=== PATIENT | female | born 1995 | race Caucasian/White ===

== ENCOUNTER → 2019-05-27 | Outpatient (CLI) | payer OTHER ==
[2019-05-27 14:02] LABS: HGB 12.7 gm/dL (11.4-16.0); MCH 29.2 pg (25.0-35.0); MCHC 32.7 g/dL (31.0-37.0); MCV 89.6 fL (80.0-100.0); Mean Platelet Volume 6.5; Platelet Count 363 k/uL (150-450); RBC 4.36 m/uL (3.80-5.40); RDW 15.7 % (11.5-15.5); WBC 10.7 k/uL (3.8-10.6)
[2019-05-27 14:09] LABS: African American GFR (CKD) >90 (>60 ml/min/1.73 sqM); Glucose 104 mg/dL (74-99)
--- NOTE | 2019-05-27 15:53 | US ---
EXAMINATION TYPE: Transabdominal DATE OF EXAM: 05/27/2019 2:10 PM COMPARISON: NONE CLINICAL HISTORY: Z36 CONFIRM DATES. EXAM PERFORMED: Transabdominal (TA) EXAM MEASUREMENTS: GESTATIONAL AGE / DATING Physician Established: Not yet established Dates by LMP: (13 weeks/1 days) EDC: 12/01/18 Dates by First Scan: No previous this is first scan Dates by Current Scan for: (13 weeks/4 days) EDC: 11/28/18 MATERNAL ANATOMY Uterus: 11.5 x 8.8 x 10.0cm Right Ovary: 3.3 x 2.6 x 2.4cm Left Ovary: not seen due to increased uterine size, overlying bowel gas Post CDS / Adnexa: wnl Presence of free fluid: no Presence of corpus luteal cyst: 2.4 x 2.1 x 2.1 Presence of subchorionic bleed: no GESTATION / SURVEY CRL: 7.5cm (13 weeks/4 days) Yolk Sac (normal less than 6mm): not seen Heart Rate: 160 bpm Rhythm: Normal IUP: Viable IUP Date of LMP: 02/24/19 Beta HcG (if available): IMPRESSION: Single intrauterine gestation estimated at 13 weeks 4 days gestation based on crown-rump length. Card iac activity measures 160 bpm.
== END | disposition home or self-care (01) ==
LOC: RADUSWWP 13:31
PROVIDERS: ATTEND Obstetrics & Gynecology
DX: Z34.91 Encounter for supervision of normal pregnancy, unspecified, first trimester (principal); Z3A.13 13 weeks gestation of pregnancy
CPT/HCPCS: 76801; 82565; 82947; 85027; 86762; 86780; 86850; 86900; 86901; 87340

== ENCOUNTER 2019-08-13 12:12 | Emergency (ER) | payer OTHER ==
--- NOTE | 2019-08-13 13:40 | XR ---
EXAMINATION TYPE: XR chest 2V DATE OF EXAM: 08/13/2019 COMPARISON: NONE HISTORY: Chest pain and shortness of breath TECHNIQUE: Frontal and lateral views of the chest are obtained. FINDINGS: There is no focal air space opacity, pleural effusion, or pneumothorax seen. The cardiac silhouette size is within normal limits. The osseous structures are intact. IMPRESSION: No acute cardiopulmonary process.
[2019-08-13 13:45] LABS: Basophils # (A) 0.1 k/uL (0-0.2); Basophils % (A) 0 %; Eosinophils # (A) 0.2 k/uL (0-0.7); Eosinophils % (A) 2 %; HCT 33.6 % (34.0-46.0); HGB 11.7 gm/dL (11.4-16.0); Lymphocytes # (A) 1.7 k/uL (1.0-4.8); Lymphocytes % (A) 14 %; MCH 32.1 pg (25.0-35.0); MCHC 34.9 g/dL (31.0-37.0); MCV 91.8 fL (80.0-100.0); Mean Platelet Volume 5.9; Monocytes # (A) 0.5 k/uL (0-1.0); Monocytes % (A) 4 %; Neutrophils # (A) 9.2 k/uL (1.3-7.7); Neutrophils % (A) 79 %; Platelet Count 306 k/uL (150-450); RBC 3.66 m/uL (3.80-5.40); WBC 11.7 k/uL (3.8-10.6)
[2019-08-13 13:59] LABS: Appearance,Urine Clear (Clear); Bilirubin,Urine Negative (Negative); Blood,Urine Negative (Negative); Color,Urine Yellow; Glucose,Urine (UA) 1+ (Negative); Ketones,Urine Negative (Negative); Leukocyte Esterase,Urine Negative (Negative); Nitrite,Urine Negative (Negative); PH, Urine 5.5 (5.0-8.0); Protein,Urine Negative (Negative); Specific Gravity,Urine 1.017 (1.001-1.035); Urobilinogen,Urine <2.0 mg/dL (<2.0)
[2019-08-13 14:03] LABS: INR 0.9 (<1.2); Prothrombin Time 9.4 sec (9.0-12.0)
[2019-08-13 14:09] LABS: ALT 33 U/L (9-52); AST 28 U/L (14-36); African American GFR (CKD) >90 (>60 ml/min/1.73 sqM); Albumin 3.9 g/dL (3.5-5.0); Alkaline Phosphatase 54 U/L (38-126); Anion Gap 8 mmol/L; Blood Urea Nitrogen 14 mg/dL (7-17); Calcium 9.7 mg/dL (8.4-10.2); Carbon Dioxide 24 mmol/L (22-30); Chloride 105 mmol/L (98-107); Glucose 108 mg/dL (74-99); Magnesium 1.6 mg/dL (1.6-2.3); Sodium 137 mmol/L (137-145); Total Bilirubin 0.2 mg/dL (0.2-1.3); Total Protein 7.2 g/dL (6.3-8.2)
[2019-08-13 14:10] LABS: Partial Thromboplastin Time 22.5 sec (22.0-30.0)
[2019-08-13 14:12] LABS: D-Dimer 0.94 mg/L FEU (<0.60)
--- NOTE | 2019-08-13 14:25 | US ---
EXAMINATION TYPE: US venous doppler duplex LE DATE OF EXAM: 08/13/2019 1:10 PM COMPARISON: NONE CLINICAL HISTORY: chest pain. Chest pain, SOB, bilateral leg swelling, patient is 24 weeks SIDE PERFORMED: Bilateral TECHNIQUE: The lower extremity deep venous system is examined utilizing real time linear array sonog laney with graded compression, doppler sonography and color-flow sonography. VESSELS IMAGED: External Iliac Vein (EIV) Common Femoral Vein Deep Femoral Vein Greater Saphenous Vein * Femoral Vein Popliteal Vein Small Saphenous Vein * Proximal Calf Veins (* superficial vessels) Grayscale, color doppler, spectral doppler imaging performed of the deep veins of the lower extremiti es. There is normal flow, compressibility, vascular waveforms. Right Leg: Appears negative for DVT Left Leg: Appears negative for DVT IMPRESSION: No sonographic evidence of deep venous thrombosis within either the bilateral lower extre mities.
[2019-08-13 14:28] VITALS: RESP 18
--- NOTE | 2019-08-13 15:16 | ED ---
Chest Pain HPI - General Chief Complaint: Chest Pain Stated Complaint: Chest heaviness/sob 24 wks Time Seen by Provider: 08/13/19 12:20 Source: patient Mode of arrival: ambulatory Limitations: no limitations - History of Present Illness Initial Comments: The patient is a 24-year-old female who currently lives 24 weeks . She has established care with Dr. Galvez. Today she had left-sided chest pain which started approximately 1 prior to arrival. States that she was at work when it came on. States that she was not dizzy. 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 She had associated mild shortness of breath. There is no provocative or palliative factors. No history of similar in the past. She denies any issues with this . No hyperglycemia or hypertension. She denies any abnormal vaginal bleeding or discharge. No abdominal cramping. Denies any headaches right upper quadrant pain. Does admit to bilateral lower extremity edema which has been present for the past week. No vision changes. No nausea or vomiting. No history of DVT or PE. No calf pain or swelling. No family history of blood clotting disorders. No family history of cardiac disease. There are no other alleviating, precipitating or modifying factors - Related Data Home Medications Medication Instructions Recorded Confirmed Pnv No.95/Ferrous Fum/Folic AC 1 each PO DAILY 08/13/19 08/13/19 [ Multivitamin Tablet] Allergies Allergy/AdvReac Type Severity Reaction Status Date / Time amoxicillin Allergy Rash/Hives Verified 08/13/19 17:26 cefaclor [From Ceclor] Allergy Rash/Hives Verified 08/13/19 17:26 erythromycin base Allergy Nausea & Verified 08/13/19 17:26 Vomiting Penicillins Allergy Rash/Hives Verified 08/13/19 17:26 Review of Systems ROS Statement: Those systems with pertinent positive or pertinent negative responses have been documented in the HPI. ROS Other: All systems not noted in ROS Statement are negative. EKG Findings - EKG Comments: EKG Findings:: EKG demonstrates a normal sinus rhythm with a ventricular rate of 95. MA interval 144. QRS 86. QTC 459. There is an inverted T-wave in lead 3. No acute ST segment elevations or depressions concerning for ischemic changes Past Medical History Past Medical History: No Reported History History of Any Multi-Drug Resistant Organisms: None Reported Past Surgical History: No Surgical Hx Reported Past Psychological History: No Psychological Hx Reported Smoking Status: Never smoker Past Alcohol Use History: None Reported Past Drug Use History: None Reported General Exam Limitations: no limitations General appearance: alert, in no apparent distress Head exam: Present: atraumatic, normocephalic, normal inspection Eye exam: Present: normal appearance, PERRL, EOMI. Absent: scleral icterus, conjunctival injection, periorbital swelling ENT exam: Present: normal exam, mucous membranes moist Neck exam: Present: normal inspection. Absent: tenderness, meningismus, lym phadenopathy Respiratory exam: Present: normal lung sounds bilaterally. Absent: respiratory distress, wheezes, rales, rhonchi, stridor Cardiovascular Exam: Present: regular rate, normal rhythm, normal heart sounds. Absent: systolic murmur, diastolic murmur, rubs, gallop, clicks GI/Abdominal exam: Present: soft, normal bowel sounds, other (gravid, uterus palpated above the umbilicus). Absent: distended, tenderness, guarding, rebound, rigid Extremities exam: Present: normal inspection, full ROM, normal capillary refill, pedal edema. Absent: tenderness, joint swelling, calf tenderness Back exam: Present: normal inspection Neurological exam: Present: alert, oriented X3, CN II-XII intact Psychiatric exam: Present: normal affect, normal mood Skin exam: Present: warm, dry, intact, normal color. Absent: rash Course Vital Signs 08/13/19 08/13/19 08/13/19 12:18 14:27 16:54 Temperature 97.6 F 98.1 F Pulse Rate 90 85 93 Respiratory 20 18 18 Rate Blood Pressure 142/93 127/78 136/88 O2 Sat by Pulse 100 99 98 Oximetry Chest Pain MDM - MDM Upon arrival the patient was placed into room 25. A thorough history and physical exam was performed. I did recommend an EKG, laboratory studies and a chest x-ray. EKG demonstrates no acute findings. CBC shows a white blood count of 11.7. D-dimer is elevated at 0.94 however within normal limits for a second trimester . A CMP is unremarkable. First troponin is negative. Urinalysis shows no protein. The patient's blood pressures were evaluated multiple times about her stay. They did remain close to 130 systolic. I did perform a chest x-ray on the patient which demonstrates no acute cardiopulmonary process. I also did a venous Doppler of the patient's bilateral lower extremities which demonstrates no acute DVT. I did discuss these results with the patient. I did offer a CT of the patient's chest because of her elevated d- dimer however the patient refused. I did do a bedside ultrasound which demonstrated positive movements and heart tones of approximately 138. I also performed a cardiac ultrasound. At this time the patient will be discharged home. She needs to follow up with cardiology and have a formal echo of her heart performed. She is to follow up with her primary care physician in 2-4 days. She needs to return to the emergency room for any new or worsening symptoms. She will be discharged from here and is to go upstairs to OB for an NST. The patient was discharged from the ER and taken up to OB. Disposition Clinical Impression: Chest pain, Second trimester , Lower extremity edema Disposition: HOME SELF-CARE Condition: Stable Instructions (If sedation given, give patient instructions): Chest Pain (ED) Additional Instructions: Please follow up with your primary care doctor in 2-4 days. I recommend that you have a echo of your heart done. Return to the emergency room for any new or worsening symptoms Is patient prescribed a controlled substance at d/c from ED?: No Referrals: Lokesh Schneider MD [Primary Care Provider] - 1-2 days Toby Galvez MD [STAFF PHYSICIAN] - 1-2 days Time of Disposition: 16:28
[2019-08-13 16:55] VITALS: BP 136/88; PULSE 93; TEMP 98.1
== END 2019-08-13 16:55 | disposition home or self-care (01) ==
LOC: EC 12:12
DX: O12.02 Gestational edema, second trimester (principal); O99.412 Diseases of the circulatory system complicating pregnancy, second trimester; R07.89 Other chest pain; Z3A.24 24 weeks gestation of pregnancy; Z88.1 Allergy status to other antibiotic agents; Z88.0 Allergy status to penicillin
CPT/HCPCS: 36415; 71046; 80053; 81003; 83735; 84484; 85025; 85379; 85610; 85730; 93005; 93970; 99285

== ENCOUNTER 2019-08-13 17:03 | Outpatient (CLI) | payer OTHER ==
[2019-08-13 19:12] VITALS: BP 135/82; PULSE 93; RESP 16; TEMP 98.1
--- NOTE | 2019-08-15 07:55 | P.MSEPDOC ---
Presenting Problems - Arrival Data Date of Arrival on Unit: 08/13/19 Time of Arrival on Unit: 17:03 Mode of Transport: Ambulatory - Complaint OB-Reason for Admission/Chief Complaint: PIH Comment: pt c/o increase blood pressure with activity and headache, heaviness in chest Medical History - Information : 1 Para: 0 Term: 0 : 0 Abortions: Spontaneous or Elective: 0 Number of Living Children: 0 - Gestational Age Gestational Age by JANNIE (wks/days): 24 Weeks and 2 Days Review of Systems - Review of Systems Constitutional: No problems Breast: No problems ENT: No problems Cardiovascular: No problems, Chest pain Respiratory: No problems Gastrointestinal: No problems Genitourinary: No problems Musculoskeletal: No problems Neurological: No problems Skin: No problems Vital Signs - Temperature Temperature: 98.1 F Temperature Source: Oral - Pulse Right Brachial Pulse Rate: 93 Pulse Assessment Method: Automatic Cuff - Respirations Respiratory Rate: 16 Oxygen Delivery Method: Room Air O2 Sat by Pulse Oximetry: 97 - Blood Pressure Right Arm Blood Pressure: 135/82 Blood Pressure Mean: 99 Blood Pressure Source: Automatic Cuff Medical Screen Scoring (Pre) - Cervical Exam Dilation: Exam Deferred - Uterine Contractions Frequency: N/A Duration: N/A - Maternal Vital Signs Maternal Temperature: N/A Maternal Blood Pressure: N/A Signs of Preeclampsia: Headache = 1 Maternal Respirations: N/A - Maternal Trauma Maternal Trauma: N/A - Assessment - Baby A Baseline FHR: 150 Heart Rate - NICHD Category: Category I (Normal) = 0 Position: N/A Station: N/A - Total Score - Baby A Total Score - Baby A: 1 - Total Score - Baby B Total Score - Baby B: 1 - Total Score - Baby C Total Score - Baby C: 1 - Level of Risk - Baby A Level of Risk - Baby A: Low (0-5) - Level of Risk - Baby B Level of Risk - Baby B: Low (0-5) - Level of Risk - Baby C Level of Risk - Baby C: Low (0-5) Physician Notification (Pre) - Physician Notified Physician Notified Date: 08/13/19 Physician Notified Time: 17:40 New Order Received: No - Notification Comment Comment: after reviewing labs pt may be discharged home Disposition - Disposition OB Disposition: Discharge to home Discharge Date: 08/13/19 Discharge Time: 17:59 I agree with the RN Medical Screening Exam: Yes Risk & Benefit of care provided described in d/c instruction: Yes Diagnosis: RELATED CONDITIONS, UNSPECIFIED, SECOND TRIMESTER
== END 2019-08-13 17:59 | disposition home or self-care (01) ==
LOC: FBPOP 17:03
PROVIDERS: ATTEND Obstetrics & Gynecology
DX: O26.92 Pregnancy related conditions, unspecified, second trimester (principal); Z3A.24 24 weeks gestation of pregnancy
CPT/HCPCS: 99215

== ENCOUNTER 2019-09-15 10:42 | Outpatient (CLI) | payer OTHER ==
[2019-09-15 13:16] VITALS: BP 135/70; PULSE 85; RESP 18; TEMP 98.2
--- NOTE | 2019-09-16 06:16 | P.MSEPDOC ---
Presenting Problems - Arrival Data Date of Arrival on Unit: 09/15/19 Time of Arrival on Unit: 10:40 Mode of Transport: Ambulatory - Complaint OB-Reason for Admission/Chief Complaint: Decreased Movement Medical History - Information : 1 Para: 0 Term: 0 : 0 Abortions: Spontaneous or Elective: 0 Number of Living Children: 0 - Gestational Age Gestational Age by JANNIE (wks/days): 29 Weeks and 0 Days Review of Systems - Review of Systems Constitutional: No problems Breast: No problems ENT: No problems Cardiovascular: No problems Respiratory: No problems Gastrointestinal: No problems Genitourinary: No problems Musculoskeletal: No problems Neurological: No problems Skin: No problems Vital Signs - Temperature Temperature: 98.2 F Temperature Source: Oral - Pulse Right Brachial Pulse Rate: 85 Pulse Assessment Method: Automatic Cuff - Respirations Respiratory Rate: 18 Oxygen Delivery Method: Room Air - Blood Pressure Right Arm Blood Pressure: 135/70 Blood Pressure Mean: 91 Blood Pressure Source: Automatic Cuff Medical Screen Scoring (Pre) - Cervical Exam Dilation: Exam Deferred Effacement: Exam Deferred - Uterine Contractions Frequency: N/A Duration: N/A Intensity: N/A - Maternal Vital Signs Maternal Temperature: N/A Maternal Blood Pressure: N/A Signs of Preeclampsia: N/A Maternal Respirations: N/A - Maternal Trauma Maternal Trauma: N/A - Assessment - Baby A Baseline FHR: 135 Heart Rate - NICHD Category: Category I (Normal) = 0 NST: Reactive Position: N/A Station: N/A - Total Score - Baby A Total Score - Baby A: 0 - Total Score - Baby B Total Score - Baby B: 0 - Total Score - Baby C Total Score - Baby C: 0 - Level of Risk - Baby A Level of Risk - Baby A: Low (0-5) - Level of Risk - Baby B Level of Risk - Baby B: Low (0-5) - Level of Risk - Baby C Level of Risk - Baby C: Low (0-5) Physician Notification (Pre) - Physician Notified Physician Notified Date: 09/15/19 Physician Notified Time: 11:20 Spoke With: perry Shay Order Received: Yes - Notification Comment Comment: discharge home. to keep next sched appt Disposition - Disposition OB Disposition: Discharge to home Discharge Date: 09/15/19 Discharge Time: 11:35 I agree with the RN Medical Screening Exam: Yes Risk & Benefit of care provided described in d/c instruction: Yes Diagnosis: DECREASED MOVEMENTS, SECOND TRIMESTER, FETUS 1
== END 2019-09-15 11:35 | disposition home or self-care (01) ==
LOC: FBPOP 10:42
PROVIDERS: ATTEND Obstetrics & Gynecology
DX: O36.8121 Decreased fetal movements, second trimester, fetus 1 (principal); Z3A.29 29 weeks gestation of pregnancy
CPT/HCPCS: 59025; G0463; 99213

== ENCOUNTER 2019-10-10 11:50 | Emergency (ER) | payer OTHER ==
[2019-10-10 12:24] VITALS: RESP 16; TEMP 98.4
--- NOTE | 2019-10-10 12:32 | ED ---
Lower Extremity Injury HPI - General Chief Complaint: Extremity Injury, Lower Stated Complaint: Foot injury Time Seen by Provider: 10/10/19 12:06 Source: patient, RN notes reviewed, old records reviewed Mode of arrival: ambulatory Limitations: no limitations - History of Present Illness Initial Comments: Patient is a pleasant 24-year-old female proximally 33 weeks . She presents today with complaints of left foot pain. Patient reports that on Friday late evening a couch was dropped on her foot while they were trying to move it. Patient reports that she's had some tenderness and swelling over the third and fourth distal metatarsals. Patient states pain with range motion of her toes. Denies any previous broken bones prior to this. - Related Data Home Medications Medication Instructions Recorded Confirmed Pnv No.95/Ferrous Fum/Folic AC 1 each PO DAILY 08/13/19 09/15/19 [ Multivitamin Tablet] Ferrous Sulfate [Feosol] 325 mg PO DAILY 09/15/19 09/15/19 Allergies Allergy/AdvReac Type Severity Reaction Status Date / Time amoxicillin Allergy Rash/Hives Verified 08/13/19 17:26 cefaclor [From Ceclor] Allergy Rash/Hives Verified 08/13/19 17:26 erythromycin base Allergy Nausea & Verified 08/13/19 17:26 Vomiting Penicillins Allergy Rash/Hives Verified 08/13/19 17:26 Review of Systems ROS Statement: Those systems with pertinent positive or pertinent negative responses have been documented in the HPI. ROS Other: All systems not noted in ROS Statement are negative. Past Medical History Past Medical History: No Reported History History of Any Multi-Drug Resistant Organisms: None Reported Past Surgical History: No Surgical Hx Reported Past Psychological History: No Psychological Hx Reported Smoking Status: Never smoker Past Alcohol Use History: None Reported Past Drug Use History: None Reported General Exam - General Exam Comments Initial Comments: 24-year-old male. Alert and oriented. No distress. Limitations: no limitations General appearance: alert, in no apparent distress Head exam: Present: atraumatic, normocephalic, normal inspection Eye exam: Present: normal appearance, PERRL, EOMI. Absent: scleral icterus, conjunctival injection, periorbital swelling ENT exam: Present: normal exam, mucous membranes moist Neck exam: Present: normal inspection. Absent: tenderness, meningismus, lymphadenopathy Respiratory exam: Present: normal lung sounds bilaterally. Absent: respiratory distress, wheezes, rales, rhonchi, stridor Cardiovascular Exam: Present: regular rate, normal rhythm, normal heart sounds. Absent: systolic murmur, diastolic murmur, rubs, gallop, clicks Extremities exam: Present: normal inspection, full ROM, normal capillary refill, other (She has contusion over the dorsum of her left foot.). Absent: tenderness, pedal edema, joint swelling, calf tenderness Course Vital Signs 10/10/19 12:20 Temperature 98.4 F Pulse Rate 87 Respiratory 16 Rate Blood Pressure 139/84 O2 Sat by Pulse 99 Oximetry Medical Decision Making - Medical Decision Making 24-year-old female presents today for evaluation for left foot pain. Patient reportedly dropped a couch on the dorsum of her foot 2 days ago. Eric worsening soft tissue swelling. This time x-rays are negative for fracture. Patient is given Hardeep wrap. Discussed to use crutches for pain. Discussed close follow-up with primary care doctor. All questions were answered. - Radiology Data Radiology results: report reviewed Dorsal soft tissue swelling along the forefoot and midfoot region. No osseous abnormality seen. Disposition Clinical Impression: Foot contusion Disposition: HOME SELF-CARE Condition: Good Instructions (If sedation given, give patient instructions): Foot Contusion (ED) Additional Instructions: Advised to rest ice and elevate foot. Taking Tylenol for pain. Please follow up with family doctor if symptoms have not improved over the next two days. Please return to the emergency room if your symptoms increase or worsen or for any other concerns. Is patient prescribed a controlled substance at d/c from ED?: No Referrals: Lokesh Schneider MD [Primary Care Provider] - 1-2 days Time of Disposition: 13:07
--- NOTE | 2019-10-10 12:34 | XR ---
EXAMINATION TYPE: XR foot complete LT DATE OF EXAM: 10/10/2019 COMPARISON: NONE HISTORY: 24-year-old female crush injury, bruising superiorly, pain. TECHNIQUE: 3 views FINDINGS: Dorsal forefoot and midfoot soft tissue swelling. No acute fracture, subluxation, dislocation seen. J oint spaces throughout are maintained. IMPRESSION: Dorsal soft tissue swelling along the forefoot/midfoot region. No underlying acute osseous abnormalit y seen.
[2019-10-10 13:27] VITALS: BP 139/94; PULSE 95
== END 2019-10-10 13:25 | disposition home or self-care (01) ==
LOC: EC 11:50
DX: O9A.213 Injury, poisoning and certain other consequences of external causes complicating pregnancy, third trimester (principal); S90.32XA Contusion of left foot, initial encounter; Z88.0 Allergy status to penicillin; Z88.1 Allergy status to other antibiotic agents; W20.8XXA Other cause of strike by thrown, projected or falling object, initial encounter; Y93.89 Activity, other specified; Z3A.33 33 weeks gestation of pregnancy
CPT/HCPCS: 99284

== ENCOUNTER 2019-11-24 12:03 | Outpatient (CLI) | payer OTHER ==
[2019-11-24 12:42] LABS: Basophils % (A) 0 %; Eosinophils # (A) 0.3 k/uL (0-0.7); Eosinophils % (A) 3 %; HCT 36.6 % (34.0-46.0); HGB 12.3 gm/dL (11.4-16.0); Lymphocytes # (A) 1.7 k/uL (1.0-4.8); Lymphocytes % (A) 16 %; MCH 30.1 pg (25.0-35.0); MCHC 33.5 g/dL (31.0-37.0); MCV 89.7 fL (80.0-100.0); Mean Platelet Volume 7.9; Monocytes # (A) 0.4 k/uL (0-1.0); Monocytes % (A) 4 %; Neutrophils # (A) 7.6 k/uL (1.3-7.7); Neutrophils % (A) 74 %; Platelet Count 310 k/uL (150-450); RBC 4.08 m/uL (3.80-5.40); RDW 13.2 % (11.5-15.5); WBC 10.1 k/uL (3.8-10.6)
[2019-11-24 12:44] LABS: African American GFR (CKD) >90 (>60 ml/min/1.73 sqM); Blood Urea Nitrogen 12 mg/dL (7-17); LDH 383 U/L (313-618); Non-African American GFR(CKD) >90 (>60 ml/min/1.73 sqM); Uric Acid 5.1 mg/dL (3.7-7.4)
[2019-11-24 12:48] LABS: Protein/Creatinine Ratio,Urine 0.102
[2019-11-24 13:34] LABS: Bacteria,Urine Rare /hpf; Hyaline Casts,Urine 1 /lpf (0-2); Mucus,Urine Occasional /hpf; RBC,Urine 1 /hpf (0-5); Squamous Epithelial Cell,Urine 9 /hpf (0-4); WBC,Urine 3 /hpf (0-5)
[2019-11-24 13:36] LABS: Appearance,Urine Cloudy (Clear); Color,Urine Yellow; Specific Gravity,Urine 1.015 (1.001-1.035)
[2019-11-24 13:37] LABS: Bilirubin,Urine Negative (Negative); Blood,Urine Negative (Negative); Glucose,Urine (UA) 1+ (Negative); Ketones,Urine Negative (Negative); Protein,Urine Negative (Negative)
[2019-11-24 13:38] LABS: Leukocyte Esterase,Urine Negative (Negative); Nitrite,Urine Negative (Negative); Urobilinogen,Urine <2.0 mg/dL (<2.0)
== END 2019-11-24 13:38 | disposition home or self-care (01) ==
LOC: FBPOP 12:03
PROVIDERS: ATTEND Obstetrics & Gynecology
DX: O14.93 Unspecified pre-eclampsia, third trimester (principal); Z3A.39 39 weeks gestation of pregnancy
CPT/HCPCS: 59025; 81001; 82565; 82570; 83615; 84156; 84520; 84550; 85025

== ENCOUNTER 2019-11-28 17:27 | Outpatient (CLI) | payer OTHER ==
[2019-11-28 17:46] VITALS: PULSE 96; RESP 16; TEMP 98.1
[2019-11-28 18:22] LABS: Basophils % (A) 0 %; Eosinophils # (A) 0.3 k/uL (0-0.7); Eosinophils % (A) 3 %; HCT 31.7 % (34.0-46.0); HGB 10.8 gm/dL (11.4-16.0); Lymphocytes # (A) 1.8 k/uL (1.0-4.8); Lymphocytes % (A) 16 %; MCH 30.8 pg (25.0-35.0); MCV 90.4 fL (80.0-100.0); Mean Platelet Volume 7.4; Monocytes # (A) 0.5 k/uL (0-1.0); Monocytes % (A) 4 %; Neutrophils # (A) 8.7 k/uL (1.3-7.7); Neutrophils % (A) 76 %; Platelet Count 332 k/uL (150-450); RBC 3.51 m/uL (3.80-5.40); RDW 13.3 % (11.5-15.5); WBC 11.5 k/uL (3.8-10.6)
[2019-11-28] MEDS ORDERED: LABETALOL 100 MG TAB PO STA (18:42)
[2019-11-28 18:47] VITALS: BP 127/80
--- NOTE | 2019-11-29 07:12 | P.PN ---
Progress Note - Text Progress Note Date: 11/29/19 Patient called me on 11/28/2019 with complaints of a headache and elevated blood pressure. She is S/P on 11/26, induced for gestational hypertension. She did not require any anti-hypertensives during her admission and preeclampsia evaluation previously was normal. I advised patient to come to triage for evaluation. On admit she had one elevated blood pressure and all others were normal. I did repeat labs and they did not show evidence of preeclampsia. I placed her on oral Labetalol 100 BID and discharged home to followup with me as scheduled on Friday for a repeat blood pressure check.
== END 2019-11-28 19:00 | disposition home or self-care (01) ==
LOC: FBPOP 17:27
PROVIDERS: ATTEND Obstetrics & Gynecology
DX: O13.3 Gestational [pregnancy-induced] hypertension without significant proteinuria, third trimester (principal)
CPT/HCPCS: 84450; 84460; 84550; 85025; G0463; 99215

== ENCOUNTER 2020-06-19 15:10 | Emergency (ER) | payer OTHER ==
--- NOTE | 2020-06-19 16:19 | XR ---
EXAMINATION TYPE: XR foot complete LT DATE OF EXAM: 06/19/2020 CLINICAL HISTORY: pain TECHNIQUE: Frontal, lateral and oblique images of the left foot are obtained. COMPARISON: None. FINDINGS: There is no acute fracture/dislocation evident. The joint spaces appear within normal prieto its. The overlying soft tissue appears unremarkable. IMPRESSION: There is no acute fracture or dislocation. ICD 10 NO FRACTURE, INITIAL EVALUATION
--- NOTE | 2020-06-19 16:39 | ED ---
Lower Extremity Injury HPI - General Chief Complaint: Extremity Injury, Lower Stated Complaint: Fall, lt foot injury Time Seen by Provider: 06/19/20 15:34 Source: patient, RN notes reviewed, old records reviewed Mode of arrival: ambulatory Limitations: no limitations - History of Present Illness Initial Comments: Pt is a 25 year old female with CC of left foot injury. She reports she fell down 6 stairs on Friday and injured her left fot. She states that she has no other injury. Pt reports pain with ambulation and swelling. - Related Data Previous Rx's Medication Instructions Recorded Ibuprofen [Motrin] 600 mg PO Q8HR PRN #20 tab 06/19/20 Allergies Allergy/AdvReac Type Severity Reaction Status Date / Time amoxicillin Allergy Rash/Hives Verified 06/19/20 15:30 cefaclor [From Ceclor] Allergy Rash/Hives Verified 06/19/20 15:30 erythromycin base Allergy Nausea & Verified 06/19/20 15:30 Vomiting Penicillins Allergy Rash/Hives Verified 06/19/20 15:30 Review of Systems ROS Statement: Those systems with pertinent positive or pertinent negative responses have been documented in the HPI. ROS Other: All systems not noted in ROS Statement are negative. Past Medical History Past Medical History: No Reported History History of Any Multi-Drug Resistant Organisms: None Reported Past Surgical History: No Surgical Hx Reported Past Anesthesia/Blood Transfusion Reactions: No Reported Reaction Past Psychological History: No Psychological Hx Reported Past Alcohol Use History: None Reported Past Drug Use History: None Reported - Past Family History Mother Family Medical History: No Reported History General Exam - General Exam Comments Initial Comments: Pt is a well appearing 25 year old female, no distress. Limitations: no limitations General appearance: alert, in no apparent distress Head exam: Present: atraumatic, normocephalic, normal inspection Eye exam: Present: normal appearance, PERRL, EOMI. Absent: scleral icterus, conjunctival injection, periorbital swelling ENT exam: Present: normal exam, mucous membranes moist Neck exam: Present: normal inspection. Absent: tenderness, meningismus, lymphadenopathy Respiratory exam: Present: normal lung sounds bilaterally. Absent: respiratory distress, wheezes, rales, rhonchi, stridor Cardiovascular Exam: Present: regular rate, normal rhythm, normal heart sounds. Absent: systolic murmur, diastolic murmur, rubs, gallop, clicks GI/Abdominal exam: Present: soft, normal bowel sounds. Absent: distended, tenderness, guarding, rebound, rigid Extremities exam: Present: normal inspection, full ROM, normal capillary refill, other (swelling and tenderness over first and second metatarsal on left foot. Normal cap refill. ). Absent: tenderness, pedal edema, joint swelling, calf tenderness Neurological exam: Present: alert, oriented X3, CN II-XII intact Psychiatric exam: Present: normal affect, normal mood Skin exam: Present: warm, dry, intact, normal color. Absent: rash Course Vital Signs 06/19/20 06/19/20 15:29 16:45 Temperature 98.3 F 98.0 F Pulse Rate 77 75 Respiratory 18 16 Rate Blood Pressure 125/86 134/100 O2 Sat by Pulse 99 100 Oximetry Procedures - Orthopedic Splinting/Casting Injury #1 Side: left Lower Extremity Immobilizer: posterior splint, synthetic pre-padded splint Other Orthopedic Equipment: crutches Medical Decision Making - Medical Decision Making 25 year old female with left foot pain after falling down stairs a few days ago. she has swelling and tenderness to left first metatarsal. Xry is negative for fracture. With pain with ambulation and non weight bearing, pt placed in splint. Discussed return parameters. - Radiology Data Radiology results: report reviewed Foot xray is netagive for acute process. Disposition Clinical Impression: Foot contusion, Foot sprain Disposition: HOME SELF-CARE Condition: Good Instructions (If sedation given, give patient instructions): Foot Sprain (ED) Additional Instructions: Patient advised to rest, ice, elevate the foot. Remain in the splint. See orthopedic for recheck. Prescriptions: Ibuprofen [Motrin] 600 mg PO Q8HR PRN #20 tab PRN Reason: Pain Is patient prescribed a controlled substance at d/c from ED?: No Referrals: Lokesh Tinajero MD [Primary Care Provider] - 1-2 days Shai Qureshi DO [Doctor of Osteopathic Medicine] - 1-2 days Time of Disposition: 16:38
[2020-06-19 17:02] VITALS: BP 134/100; PULSE 75; RESP 16; TEMP 98
== END 2020-06-19 16:45 | disposition home or self-care (01) ==
LOC: EC 15:10
DX: S93.602A Unspecified sprain of left foot, initial encounter (principal); Z88.0 Allergy status to penicillin; Z88.1 Allergy status to other antibiotic agents; W10.9XXA Fall (on) (from) unspecified stairs and steps, initial encounter
CPT/HCPCS: 29515; 99284

== ENCOUNTER 2024-02-23 07:30 | Outpatient (CLI) | payer OTHER ==
[2024-02-23] MEDS: ACETAMINOPHEN TAB 500 MG TAB PO STA (09:01)
[2024-02-23 09:21] LABS: ALT 16 U/L (4-34); AST 22 U/L (14-36); African American GFR (CKD) >90 (>60 ml/min/1.73 sqM); Blood Urea Nitrogen 9 mg/dL (7-17); LDH 182 U/L (120-246); Non-African American GFR(CKD) >90 (>60 ml/min/1.73 sqM); Uric Acid 4.5 mg/dL (3.7-7.4)
[2024-02-23 09:24] LABS: Appearance,Urine Clear (Clear); Bilirubin,Urine Negative (Negative); Blood,Urine Negative (Negative); Color,Urine Colorless; Glucose,Urine (UA) Negative (Negative); Ketones,Urine Negative (Negative); Leukocyte Esterase,Urine Negative (Negative); Nitrite,Urine Negative (Negative); Protein,Urine Negative (Negative); Specific Gravity,Urine 1.005 (1.001-1.035); Urobilinogen,Urine <2.0 mg/dL (<2.0)
[2024-02-23 09:47] LABS: Basophils # (A) 0.1 k/uL (0-0.2); Basophils % (A) 1 %; Eosinophils # (A) 0.2 k/uL (0-0.7); Eosinophils % (A) 1 %; HCT 39.2 % (34.0-46.0); HGB 13.1 gm/dL (11.4-16.0); Lymphocytes # (A) 1.9 k/uL (1.0-4.8); Lymphocytes % (A) 14 %; MCH 32.1 pg (25.0-35.0); MCHC 33.4 g/dL (31.0-37.0); MCV 96.2 fL (80.0-100.0); Mean Platelet Volume 7.7; Monocytes # (A) 0.5 k/uL (0-1.0); Monocytes % (A) 4 %; Neutrophils # (A) 11.1 k/uL (1.3-7.7); Neutrophils % (A) 81 %; Platelet Count 333 k/uL (150-450); RBC 4.08 m/uL (3.80-5.40); RDW 12.8 % (11.5-15.5); WBC 13.8 k/uL (3.8-10.6)
[2024-02-23 10:31] LABS: Creatinine,Urine Random 35.4 mg/dL; Protein/Creatinine Ratio,Urine 0.593
[2024-02-23 11:20] VITALS: BP 134/82; PULSE 106; RESP 18; TEMP 98.4
--- NOTE | 2024-02-23 16:27 | P.MSEPDOC ---
Presenting Problems - Arrival Data Date of Arrival on Unit: 02/23/24 Time of Arrival on Unit: 07:30 Mode of Transport: Ambulatory - Complaint OB-Reason for Admission/Chief Complaint: Headache, Elevated Blood Pressure, Dizziness Medical History - Information : 2 Para: 1 Term: 1 : 0 Abortions: Spontaneous or Elective: 0 Number of Living Children: 1 - Gestational Age Gestational Age by JANNIE (wks/days): 24 Weeks and 1 Days - History Comment: hx of [facility] Review of Systems - Review of Systems Constitutional: No problems Breast: No problems ENT: No problems Cardiovascular: No problems Respiratory: No problems Gastrointestinal: No problems Genitourinary: No problems Musculoskeletal: No problems Neurological: Dizziness Skin: No problems Vital Signs - Temperature Temperature: 98.4 F Temperature Source: Temporal Artery Scan - Pulse Pulse Oximetery Pulse Rate: 106 Pulse Assessment Method: Pulse Oximetry - Respirations Respiratory Rate: 18 Oxygen Delivery Method: Room Air O2 Sat by Pulse Oximetry: 98 - Blood Pressure Right Arm Blood Pressure: 134/82 Blood Pressure Mean: 99 Blood Pressure Source: Automatic Cuff Medical Screen Scoring - Assessment - Baby A Baseline FHR: 140 Heart Rate - NICHD Category: Category I (Normal) Physician Notification - Physician Notified Physician Notified Date: 02/23/24 Physician Notified Time: 08:47 Physician: Becky Mccall New Order Received: Yes - Notification Comment Comment: Dr. Mccall called on cell, report given on pt's c/o elevated BP, DONALDSON, dizziness, lightheadedness, and blurred vision this morning. Pt currently has a slight DONALDSON and slight lightheadedness. BPs currently are 134/82, 127/77, 119/70, etc. Pt has not taken her nifedipine yet this morning nor has she taken tylenol. FHR 140s via doppler, RN unable to get FHR to trace via EFM. Orders to give 1,000mg PO tylenol and draw [facility] labs. If labs are WNL, pt can be d/c'd home and follow up at her next scheduled appointment on . Maternal Triage Index - Maternal Triage Index Presenting for scheduled procedure w/no complaint: No - Stat/Priority 1 Stat Priority 1: No - Urgent/Priority 2 Urgent Priority 2: No - Prompt/Priority 3 Prompt Priority 3: Yes Criteria Met for Priority 3: 24 1/7wks, c/o DONALDSON, dizziness, lightheadedness, blurred vision this morning. Hx of PIH with first Disposition - Disposition OB Disposition: Discharge to home Discharge Date: 02/23/24 Discharge Time: 10:35 I agree with the RN Medical Screening Exam: Yes Physician's MSE Comment: I have neither seen nor examined the patient Case reviewed; plan agreed upon as documented in EMR&OBIX.: Yes Diagnosis: MATERNAL CARE FOR PROBLEM, UNSP, SECOND * DO NOT USE *
== END 2024-02-23 10:35 | disposition home or self-care (01) ==
LOC: FBPOP 07:30
PROVIDERS: ATTEND Obstetrics & Gynecology
DX: O99.891 Other specified diseases and conditions complicating pregnancy (principal); R51.9 Headache, unspecified; R42 Dizziness and giddiness; O26.892 Other specified pregnancy related conditions, second trimester; R03.0 Elevated blood-pressure reading, without diagnosis of hypertension; Z3A.24 24 weeks gestation of pregnancy; Z88.0 Allergy status to penicillin; Z88.8 Allergy status to other drugs, medicaments and biological substances; Z88.1 Allergy status to other antibiotic agents
CPT/HCPCS: 82570; 84156; 82565; 83615; 84450; 84460; 84520; 84550; 85025; 81003; G0463; 99215

== ENCOUNTER 2024-04-25 13:45 | Outpatient (CLI) | payer OTHER ==
[2024-04-25 14:32] LABS: Creatinine,Urine Random 150.7 mg/dL
[2024-04-25 14:47] LABS: Appearance,Urine Cloudy (Clear); Bacteria,Urine Rare /hpf; Bilirubin,Urine Negative (Negative); Blood,Urine Negative (Negative); Color,Urine Yellow; Glucose,Urine (UA) 2+ (Negative); Ketones,Urine Negative (Negative); Leukocyte Esterase,Urine Moderate (Negative); Mucus,Urine Rare /hpf; Nitrite,Urine Negative (Negative); Protein,Urine Trace (Negative); RBC,Urine 5 /hpf (0-5); Specific Gravity,Urine 1.022 (1.001-1.035); Squamous Epithelial Cell,Urine 12 /hpf (0-4); WBC,Urine 6 /hpf (0-5)
[2024-04-25 14:57] LABS: Basophils # (A) 0.1 k/uL (0-0.2); Basophils % (A) 1 %; Eosinophils # (A) 0.3 k/uL (0-0.7); Eosinophils % (A) 3 %; HCT 32.6 % (34.0-46.0); HGB 10.9 gm/dL (11.4-16.0); Lymphocytes % (A) 18 %; MCH 31.3 pg (25.0-35.0); MCHC 33.5 g/dL (31.0-37.0); MCV 93.3 fL (80.0-100.0); Mean Platelet Volume 7.3; Monocytes # (A) 0.5 k/uL (0-1.0); Monocytes % (A) 4 %; Neutrophils % (A) 73 %; Platelet Count 371 k/uL (150-450); RBC 3.49 m/uL (3.80-5.40); WBC 10.9 k/uL (3.8-10.6)
[2024-04-25] MEDS ORDERED: ONDANSETRON 4 MG/2 ML VIAL IVP STA (15:22)
[2024-04-25 15:58] LABS: ALT 17 U/L (4-34); AST 24 U/L (14-36); African American GFR (CKD) >90 (>60 ml/min/1.73 sqM); Blood Urea Nitrogen 9 mg/dL (7-17); LDH 149 U/L (120-246); Non-African American GFR(CKD) >90 (>60 ml/min/1.73 sqM); Uric Acid 4.6 mg/dL (3.7-7.4)
[2024-04-25 16:10] VITALS: BP 134/84; PULSE 97; RESP 18
--- NOTE | 2024-04-25 22:05 | P.MSEPDOC ---
Presenting Problems - Arrival Data Date of Arrival on Unit: 04/25/24 Time of Arrival on Unit: 13:45 Mode of Transport: Ambulatory - Complaint OB-Reason for Admission/Chief Complaint: PIH Comment: pt presents to triage for elevated bp's at home with headache and dizziness Medical History - Information : 2 Para: 1 Term: 1 : 0 Abortions: Spontaneous or Elective: 0 Number of Living Children: 1 - Gestational Age Gestational Age by JANNIE (wks/days): 33 Weeks and 0 Days Review of Systems - Review of Systems Constitutional: No problems Breast: No problems ENT: No problems Cardiovascular: No problems Respiratory: No problems Gastrointestinal: No problems Genitourinary: No problems Musculoskeletal: No problems Neurological: No problems Skin: No problems Vital Signs - Pulse Left Brachial Pulse Rate: 97 Pulse Assessment Method: Automatic Cuff - Respirations Respiratory Rate: 18 Oxygen Delivery Method: Room Air O2 Sat by Pulse Oximetry: 97 - Blood Pressure Left Arm Blood Pressure: 134/84 Blood Pressure Mean: 100 Blood Pressure Source: Automatic Cuff Medical Screen Scoring - Uterine Contractions Intensity: Mild Resting: Soft to palpation - Assessment - Baby A Baseline FHR: 140 NST: Reactive Physician Notification - Physician Notified Physician Notified Date: 04/25/24 Physician Notified Time: 13:55 Physician: [id number] - Notification Comment Comment: nst reactive, labs drawn and urine sent, bp's wnl, report given to Dr. Perez, orders to discharge home, pt has appt with Dr. Mccall on Friday Maternal Triage Index - Maternal Triage Index Presenting for scheduled procedure w/no complaint: No - Stat/Priority 1 Stat Priority 1: No - Urgent/Priority 2 Urgent Priority 2: Yes Provider Notified: Dena Perez Provider Notified Time: 13:55 Criteria Met for Priority 2: pt presents to triage for elevated bp's at home with headache and dizziness Disposition - Disposition OB Disposition: Triage, Discharge to home, Written follow up instructions reviewed Discharge Date: 04/25/24 Discharge Time: 15:55 I agree with the RN Medical Screening Exam: Yes Case reviewed; plan agreed upon as documented in EMR&OBIX.: Yes Diagnosis: GESTATIONAL HTN W/O SIGNIFICANT PROTEINURIA, THIRD TRIMESTER
== END 2024-04-25 15:55 | disposition home or self-care (01) ==
LOC: FBPOP 13:45
PROVIDERS: ATTEND Obstetrics & Gynecology
DX: O13.3 Gestational [pregnancy-induced] hypertension without significant proteinuria, third trimester (principal); Z3A.33 33 weeks gestation of pregnancy; Z88.0 Allergy status to penicillin; Z88.1 Allergy status to other antibiotic agents
CPT/HCPCS: 36415; 59025; 81001; 82565; 82570; 83615; 84156; 84450; 84460; 84520; 84550; 85025; 99215

== ENCOUNTER 2024-05-04 09:16 | Outpatient (CLI) | payer OTHER ==
[2024-05-04] MEDS: ACETAMINOPHEN TAB 500 MG TAB PO STA (10:40)
[2024-05-04] MEDS: ONDANSETRON 4 MG TAB PO PRN (10:54)
[2024-05-04 11:11] VITALS: BP 131/87; PULSE 77; RESP 16; TEMP 98
--- NOTE | 2024-06-29 20:35 | P.MSEPDOC ---
Presenting Problems - Arrival Data Date of Arrival on Unit: 05/04/24 Time of Arrival on Unit: 09:27 Mode of Transport: Ambulatory - Complaint OB-Reason for Admission/Chief Complaint: Headache, Elevated Blood Pressure Comment: pt 34 2/7 weeks gestation arrived and states shes been taking her B/P at home and they have been elevated plus shes had a H/A nad nausea Medical History - Information : 2 Para: 1 Term: 1 : 0 Abortions: Spontaneous or Elective: 0 Number of Living Children: 1 - Gestational Age Gestational Age by JANNIE (wks/days): 34 Weeks and 2 Days - History Complications: Chronic HTN Review of Systems - Review of Systems Constitutional: No problems Breast: No problems ENT: No problems Cardiovascular: No problems Respiratory: No problems Gastrointestinal: No problems Genitourinary: No problems Musculoskeletal: No problems Neurological: No problems Skin: No problems Vital Signs - Temperature Temperature: 98 F Temperature Source: Oral - Pulse Right Brachial Pulse Rate: 77 - Respirations Respiratory Rate: 16 Oxygen Delivery Method: Room Air O2 Sat by Pulse Oximetry: 98 - Blood Pressure Right Arm Blood Pressure: 131/87 Blood Pressure Mean: 101 Blood Pressure Source: Automatic Cuff Medical Screen Scoring - Uterine Contractions Frequency From (mins): 0 Frequency To (mins): 0 Resting: Soft to palpation - Assessment - Baby A Baseline FHR: 130 Heart Rate - NICHD Category: Category I (Normal) NST: Reactive Physician Notification - Physician Notified Physician Notified Date: 05/04/24 Physician Notified Time: 10:25 Physician: dr hahn New Order Received: Yes - Notification Comment Comment: pt v/s has been stable , reactive NST AND TYLENOL 1000 MG GIVE PO FOR h/a AND ZOFRAN 4 MG GIVEN PO FOR NAUSEA. NO CONTRACTIONS REFLEXES PLUS 1 NO CLONIS. ORDERS RECEIVED THAT MAY DISCHARGE PATIENT TO HOME WITH INSTRUCTIONS Maternal Triage Index - Non-Urgent/Priority 4 Non-Urgent Priority 4: Yes Criteria Met for Priority 4: pt edc p/05/2024 34 2/7 weeks gestation arrived stating she has been taking her b/p at home and they have been elevagted and pt has a H/A and nausea. pt states shes on procardia 90 mg and 1 baby aspirin daily and took her meds this morning. pt denies any contractions leaking of fluid or bleeding Disposition - Disposition OB Disposition: Discharge to home Discharge Date: 05/04/24 Discharge Time: 10:57 I agree with the RN Medical Screening Exam: Yes Physician's MSE Comment: I have neither seen nor examined the patient Case reviewed; plan agreed upon as documented in EMR&OBIX.: Yes Diagnosis: GESTATIONAL HTN W/O SIGNIFICANT PROTEINURIA, THIRD TRIMESTER
== END 2024-05-04 10:57 | disposition home or self-care (01) ==
LOC: FBPOP 09:16
PROVIDERS: ATTEND Obstetrics & Gynecology
DX: O13.3 Gestational [pregnancy-induced] hypertension without significant proteinuria, third trimester (principal); Z3A.34 34 weeks gestation of pregnancy; Z88.0 Allergy status to penicillin; Z88.8 Allergy status to other drugs, medicaments and biological substances; Z88.1 Allergy status to other antibiotic agents
CPT/HCPCS: 59025; 99213

== ENCOUNTER → 2024-05-11 | Outpatient (CLI) | payer OTHER | END | disposition home or self-care (01) | LOC: LABPRL 16:18 | PROVIDERS: ATTEND Obstetrics & Gynecology | DX: Z36.85 Encounter for antenatal screening for Streptococcus B (principal) | CPT/HCPCS: 87081 ==

== ENCOUNTER 2024-05-24 06:05 | Inpatient (IN) | payer OTHER | END 2024-05-26 11:00 | disposition home or self-care (01) | DRG 806 | LOC: 4FBP 06:05 | PROVIDERS: ADMIT Obstetrics & Gynecology; ATTEND Obstetrics & Gynecology | PROC: 10E0XZZ Delivery of Products of Conception, External Approach (ICD-10-PCS; principal; 2024-05-24) | PROC: 3E033VJ Introduction of Other Hormone into Peripheral Vein, Percutaneous Approach (ICD-10-PCS; 2024-05-24) | DX: O10.92 Unspecified pre-existing hypertension complicating childbirth (principal); D62 Acute posthemorrhagic anemia; Z37.0 Single live birth; O72.2 Delayed and secondary postpartum hemorrhage; O90.81 Anemia of the puerperium; O69.81X0 Labor and delivery complicated by cord around neck, without compression, not applicable or unspecified; Z3A.37 37 weeks gestation of pregnancy; Z88.1 Allergy status to other antibiotic agents; Z88.8 Allergy status to other drugs, medicaments and biological substances; Z88.0 Allergy status to penicillin ==